=== PATIENT | male | born 1950 | race Caucasian/White ===

== ENCOUNTER 2017-03-25 22:43 | Inpatient (IN) | payer MEDICARE, OTHER ==
[~2017-03-25] VITALS: Ht 172.7 cm; Wt 109.1 kg
[2017-03-25 22:46] VITALS: BP 174/50; PULSE 43; RESP 18; O2SAT 100
--- NOTE | 2017-03-25 22:46 | ED.REPORT ---
HPI-Abd Pain M 40 and Over Date of Service Mar 25, 2017 ED Provider: Dr. José Miguel Vickers MD A 67 year old male with a surgical history including cholecystectomy presents to the ED via EMS with lower, cramping abdominal pain that began yesterday. Symptom onset began shortly after eating dinner yesterday morning and the intermittent episodes of pain are often associated with eating. Associated symptoms also include nausea without vomiting. He denies any diarrhea, melena, white/silvery stool, hematochezia, hematemesis, dysuria, or hematuria. Nursing Notes Stated Complaint: ABDOMINAL PAIN Chief Complaint: Male Abdominal Pain Nursing Notes Reviewed: Yes Allergies: Coded Allergies: No Known Allergies (Unverified , 03/25/17) Scheduled ([pioglitazone HCL]) 30 MG PO DAILY Aspirin EC (Aspirin EC) 650 Mg Tablet.dr 325 MG PO DAILY Atorvastatin Calcium (Atorvastatin Calcium) 40 Mg Tablet 40 MG PO DAILY Losartan Potassium (Losartan Potassium) 100 Mg Tablet 100 MG PO DAILY Metformin (Glucophage) 1,000 Mg Tablet 1,000 MG PO BID Metoprolol Tartrate (Metoprolol Tartrate) 25 Mg Tablet 25 MG PO BID Scheduled PRN ([gabapentin]) 100 MG PO TID PRN PRN For Pain General Time Seen by MD: 22:46 Chief Complaint Abdominal pain Hx Obtained From: Patient Arrived By: Ambulance Sudden in Onset?: No Onset Occurred: Yesterday Context of Onset: Eating Symptom Duration: Intermittent Location: : Abdomen lower Quality: Cramping Radiation: : Does not radiate Severity: Current: Moderate Severity: Maximum: Moderate Associated with: Reports: Nausea, Denies: Diarrhea, Dysuria, Hematemesis, Hematochezia, Hematuria, Melena, Vomiting Pertinent Negative: Pt denies other symptoms Recent Healthcare: No recent doctor visit, No recent hospitalization Risk Factors )( AAA Risk Stratification Risk factors reviewed Past Medical History Past Medical History Obesity Past Surgical History Multiple cardiac stents Spinal fusion Cholecystectomy Smoking History Unknown if Ever Smoker Social History Other Social History: Good social support, Local resident Ambulatory Status Independent Review of Systems Denies silvery stool GI: Reports: Abdominal pain, Nausea, Denies: Diarrhea, Hematemesis, Hematochezia, Melena, Vomiting Male: Denies Dysuria, Denies Hematuria Complete sys rev & neg: except as marked. Physical Exam Initial Vital Signs Vital Signs (First) Date Time Temp Pulse Resp B/P Pulse Ox O2 Delivery O2 Flow Rate FiO2 03/25/17 22:46 36.6 43 18 174/50 100 Room Air Initial VS: Reviewed Head / Eyes: Atraumatic, Normocephalic, PERRL Neck: Supple, Non-tender, Full range of motion Extremities: Vascular intact, Neuro intact, No swelling, No tenderness Skin: Warm, Dry, No cyanosis Neurologic: Alert, Oriented, Nonfocal Psychiatric: Mood/affect normal, Behavior normal, Normal thought content General/Constitutional: Awake, Alert, No acute distress Appearance / Presentation: Positive: Obese, Uncomfortable Respiratory / Chest: Atraumatic, Breath sounds NL, Breath sounds = bilat, No respiratory distress Cardiovascular: Heart rate NL, Regular rhythm, Heart sounds NL Abdomen: Atraumatic, Soft, No rebound Tenderness/Guarding/Rebound: Positive: Guarding voluntary (Mild), Tender diffuse ABDOMEN: eczematous rash over umbilicus to lower abdomen Back: Atraumatic Limited ROM at baseline due to chronic back pain Interpretation & Diagnostics Lab Results Interpretation Result Diagram: 03/25/17 2305 03/25/17 2305 Test 03/25/17 23:05 03/26/17 01:20 White Blood Count 15.3th/mm3 (3.8-10.1) Red Blood Count 4.96mil/mm3 (4.40-5.80) Hemoglobin 15.2g/dL (13.8-17.2) Hematocrit 45.4% (41.0-50.0) Mean Corpuscular Volume 91.5fL (81-100) Mean Corpuscular Hemoglobin 30.6pg (27.0-35.0) Mean Corpuscular Hemoglobin Concent 33.5% (32.0-37.0) Red Cell Distribution Width 15.0% (12.3-15.4) Platelet Count 190bil/L (150-400) Neutrophils (%) (Auto) 83.2% (40-74) Lymphocytes (%) (Auto) 8.9% (14-46) Monocytes (%) (Auto) 6.7% (4-12) Eosinophils (%) (Auto) 0.7% (0-5) Basophils (%) (Auto) 0.1% (0-3) Prothrombin Time 10.4sec (8.1-12.5) Prothromb Time International Ratio 0.97ratio Sodium Level 140mEq/L (134-144) Potassium Level 4.8mEq/L (3.5-5.2) Chloride Level 102mEq/L (97-108) Carbon Dioxide Level 21mmol/L (18-29) Blood Urea Nitrogen 24mg/dL (8-27) Creatinine 1.43mg/dL (0.76-1.27) Estimat Glomerular Filtration Rate 52mL/min (>59) Glucose Level 180mg/dL (60-99) Calcium Level 9.5mg/dL (8.5-10.1) Magnesium Level 2.1mg/dL (1.6-2.6) Total Bilirubin 0.8mg/dL (0.0-1.2) Aspartate Amino Transf (AST/SGOT) 18U/L (0-50) Alanine Aminotransferase (ALT/SGPT) 14U/L (0-44) Alkaline Phosphatase 65U/L (25-160) Total Protein 7.2g/dL (6.4-8.4) Albumin 4.0g/dL (3.4-5.0) Lipase 36U/L (13-60) Urine Color Yellow (YELLOW) Urine Appearance Clear (CLEAR,HAZY) Urine pH 5.0 (5.0-8.0) Urine Specific [place] 1.020 (1.003-1.035) Urine Protein Tracemg/dL (NEG,TRACE) Urine Glucose (UA) Negativemg/dL (NEGATIVE) Urine Ketones 40mg/dL (NEGATIVE) Urine Occult Blood Negative (NEGATIVE) Urine Nitrite Negative (NEGATIVE) Urine Bilirubin Negative (NEGATIVE) Urine Urobilinogen Normalmg/dL (NORMAL) Urine Leukocyte Esterase Negative (NEGATIVE) Urine RBC 0-2/hpf (0-2) Urine WBC 0-5/hpf (0-5) Urine Epithelial Cells Occasional/hpf (NONE-MOD) Urine Crystals None seen (NONE SEEN) Urine Bacteria Few/hpf (NONE-FEW) Urine Hyaline Casts None/lpf (NONE) Urine Granular Casts None seen (NONE SEEN) Urine Waxy Casts None seen (NONE SEEN) Urine Red Blood Cell Casts None seen (NONE SEEN) Urine White Blood Cell Casts None seen (NONE SEEN) Urine Mucus Present (None Seen) Urine Trichomonas None seen (NONE SEEN) Urine Yeast None (NONE SEEN) Urinalysis Comment None Urine Culture Reflexed Not indicated ECG Interpretation ECG Interpretation: Sinus bracdycardia Rate 42 Nonspecific intraventricular conduction delay Time: 23:22 Interpreted by: ED physician CT Abd / Pelvis Interpretation IMPRESSION: Findings are consistent with a moderate-high grade mid to distal small bowel obstruction. Mild hazy mesentary edema may be due to superimposed ischemia. Zone transition in the lower abdomen. Probably less likely small bowel ischemia with pseudoobstruction No mesenteric or portal venous gas Scattered mild intra-abdominal and intrapelvic fluid. Cholcysectomy. No evidence of appendicitis Post op changes of the hips and lumbosacral spine. Study type: Abdominal CT IV contrast, Abdom CT oral contrast Interpretation / Wet Read by: Interpret - Radiologist (Nightshift) Re-Eval/Medical Decision Med Decision/Clinical Course 59-year-old status post cholecystectomy presents with waxing and waning abdominal pain, worse after eating. It has a colicky wavelike time sequence. Improved to have a bowel obstruction on CT scan. There is some mild to moderate free fluid in the abdomen but intact vascularity. His moderate white count elevation. Discussed with surgery and NG tube recommended despite lack of vomiting. Admitted to the medicine service with consultation to surgery. Nothing by mouth status with fluid support and pain relief. Time of Eval: 00:43 Patient Status: Condition improved Re-Evaluation/Progress Note: Patient is re-evaluated. His symptoms have improved upon recheck. He is informed of his results and diagnosis. The patient understands and agrees with the intended treatment plan to admit. Consultation : Referral / Consult Name: Trip Toledo MD Consulted With: Hospitalist Quality Control Auditor: Will see patient, Agrees with eval, Agrees with plan, Accepts admit Counseled Regarding: Diagnosis, Lab results, Need for admission Discharge & Departure Primary Impression: Small bowel obstruction Additional Impression: Small bowel ischemia Disposition: ADMITTED TO HOSPITAL Vital Signs - All Vital Signs Date Time Temp Pulse Resp B/P Pulse Ox O2 Delivery O2 Flow Rate FiO2 03/26/17 01:02 46 20 160/79 96 Room Air 03/25/17 22:46 36.6 43 18 174/50 100 Room Air )( All Prior VS Reviewed: Yes Condition: Stable Referrals: [facility] Scribe Attestation Portions of this note were transcribed by Mandy Jacob. IDr. Vickers personally performed the history, physical exam and medical decision-making; I reviewed and confirmed the accuracy of the information in the transcribed note. José Miguel Vickers MD Mar 25, 2017 22:46 MANDY JACOB Mar 25, 2017 22:54
[2017-03-25] MEDS ORDERED: 0.9% Sodium Chloride 1,000 ML IV ONE (22:53)
[2017-03-25] MEDS ORDERED: Ondansetron 2 mg/mL 2 mL Inj IVPUSH ONE (22:55)
[2017-03-25] MEDS: HYDROmorphone 1 mg/mL Inj IVPUSH PRN (23:20)
[2017-03-25 23:21] LABS: BASOPHILS % (AUTO) 0.1 % (0-3); EOSINOPHILS % (AUTO) 0.7 % (0-5); MONOCYTES % (AUTO) 6.7 % (4-12); Mean Corpuscular Hemoglobin 30.6 pg (27.0-35.0); Mean Corpuscular Volume 91.5 fL (81-100); NEUTROPHILS % (AUTO) 83.2 % (40-74); Platelet Count 190 bil/L (150-400)
[2017-03-25 23:37] LABS: INR 0.97 ratio
[2017-03-25 23:47] LABS: Magnesium 2.1 mg/dL (1.6-2.6)
[2017-03-26] MEDS ORDERED: 0.9% Sodium Chloride 1,000 ML IV ONE (00:40)
[2017-03-26 01:02] VITALS: BP 160/79; PULSE 46; RESP 20; O2SAT 96
[2017-03-26] MEDS ORDERED: Polyethylene Glycol (PEG) 17 Gm Powder PO PRN (01:05)
[2017-03-26] MEDS ORDERED: Alum-Mag Hydrox-Simeth 30 mL Suspension PO PRN (01:05)
[2017-03-26] MEDS ORDERED: Ondansetron 2 mg/mL 2 mL Inj IVPUSH PRN (01:05)
[2017-03-26] MEDS: HYDROmorphone 1 mg/mL Inj IVPUSH PRN (01:13)
[2017-03-26 01:34] LABS: APPEARANCE,URINE CLEAR (CLEAR,HAZY); COLOR,URINE YELLOW (YELLOW); OCCULT BLOOD,URINE NEGATIVE (NEGATIVE); UROBILINOGEN,URINE NORMAL (NORMAL)
[2017-03-26 02:20] VITALS: BP 154/75; PULSE 47; RESP 20; O2SAT 100
[2017-03-26] MEDS: 0.9% Sodium Chloride 1,000 ML IV SCH ×3 (03:08→22:55)
--- NOTE | 2017-03-26 03:25 | PCM.HPMED ---
Subjective Date of Service Mar 26, 2017 Primary Provider: Admitting Physician: Trip Toledo MD Primary Care Physician: Nopdanay Attending Physician: Trip Toledo MD Chief Complaint: abdominal pain History of Present Illness: Bhupinder Mullins is a 67 yr old male patient with past medical history significant for hypertension, DM type II, MELANIE, CAD, chronic back pain, anxiety, and obesity who presented to the ED with abdominal pain. He states the waxing and waning pain started on 03/24/2017 and has gone progressively worse since then. He states that the pain is in the mid abdominal area around umbilicus and does not radiate anywhere else. It is worse after eating and with pressure. He has not tried anything at home to help relieve the pain. Reports that the pain feels as if "someone is sitting on his abdomen." He denies nausea and vomiting. He reports a normal bowel movement this afternoon and he has been able to pass gas. He denies constipation, diarrhea, and blood in the stools. Patient denies fevers, chills, headaches, chest pain, shortness of breath, and dysuria. In the ED, his vital signs were as follow: Temp 36.6, heart rate 43, respiratory rate 18, pressure 174/50, 100% O2 sat at room air. WBC was 15.[address] of the abdomen with findings that are consistent with a moderate to high grade mid to distal small bowel obstruction. He was given IV Dilaudid for pain relief. Review of Systems: Comprehensive review of systems was conducted with the patient and found to be negative except as above in the history of present illness. Allergies Coded Allergies: No Known Allergies (Unverified , 03/25/17) Home Medications ([pioglitazone HCL]) 30 MG PO DAILY Aspirin EC (Aspirin EC) 650 Mg Tablet. 325 MG PO DAILY Atorvastatin Calcium (Atorvastatin Calcium) 40 Mg Tablet 40 MG PO DAILY Losartan Potassium (Losartan Potassium) 100 Mg Tablet 100 MG PO DAILY Metformin (Glucophage) 1,000 Mg Tablet 1,000 MG PO BID Metoprolol Tartrate (Metoprolol Tartrate) 25 Mg Tablet 25 MG PO BID ([gabapentin]) 100 MG PO TID PRN PRN For Pain PMH Hypertension, diabetes mellitus type II, hyperlipidemia, obesity, anxiety, chronic back pain, coronary artery disease, obstructive sleep apnea Surgical History Cholecystectomy, multiple cardiac stents, spinal fusion, 2 hip replacements Family History Cardiovascular disease with his father, mother, brother. Patient reports that his brother has cancer but he is unsure if it is colorectal. Social History Hx Alcohol Use: No Hx Substance Use: No Smoking Status: Unknown if Ever Smoker Exam Vital Signs Vital Sign - Last Date Time Temp Pulse Resp B/P Pulse Ox O2 Delivery O2 Flow Rate FiO2 03/26/17 02:20 36.4 47 20 154/75 100 Nasal Cannula 2.00 Intake and Output 03/25/17 03/25/17 03/26/17 Cumulative From/Thru 15:00 23:00 07:00 03/25/17 22:45 - 03/26/17 02:35 Intake Total 1000 ml 1000 ml 2000 ml Balance 1000 ml 1000 ml 2000 ml Intake IV Total 1000 ml 1000 ml 2000 ml Exam General: Patient is an obese male lying uncomfortably on bed, AAOX3, not in acute distress. HEENT: head normocephalic and atraumatic, PERRLA, EOMI, no scleral icterus Neck: neck supple, non-tender, no lymphadenopathy, trachea midline CV: regular rate and rhythm, s1 and s2 heard, no murmur, radial pulses 2+ and equal bilaterally, no rubs murmurs or gallops Lungs: Clear to auscultation bilaterally, no wheezes, rales or rhonchi, no increased work of breathing Abdomen: decreased bowel sounds on 4Q, soft, tender to palpation around the umbilical region, mild voluntary guarding no organomegally Skin: warm, dry and no cyanosis, erythematous rash on Right lower abdomen as well as near umbilicus Musculoskeletal: 5/5 UE and LE strength bilaterally, Limited ROM at baseline due to chronic back pain Neuro: Grossly neurologically intact, normal speech, sensation intact Psych: Cooperative male Lab and Diagnostics Labs Laboratory Tests Test 03/25/17 23:05 03/26/17 01:20 03/26/17 02:48 03/26/17 04:30 White Blood Count 15.3th/mm3 (3.8-10.1) Red Blood Count 4.96mil/mm3 (4.40-5.80) Hemoglobin 15.2g/dL (13.8-17.2) Hematocrit 45.4% (41.0-50.0) Mean Corpuscular Volume 91.5fL (81-100) Mean Corpuscular Hemoglobin 30.6pg (27.0-35.0) Mean Corpuscular Hemoglobin Concent 33.5% (32.0-37.0) Red Cell Distribution Width 15.0% (12.3-15.4) Platelet Count 190bil/L (150-400) Neutrophils (%) (Auto) 83.2% (40-74) Lymphocytes (%) (Auto) 8.9% (14-46) Monocytes (%) (Auto) 6.7% (4-12) Eosinophils (%) (Auto) 0.7% (0-5) Basophils (%) (Auto) 0.1% (0-3) Prothrombin Time 10.4sec (8.1-12.5) Prothromb Time International Ratio 0.97ratio Sodium Level 140mEq/L (134-144) Potassium Level 4.8mEq/L (3.5-5.2) Chloride Level 102mEq/L (97-108) Carbon Dioxide Level 21mmol/L (18-29) Blood Urea Nitrogen 24mg/dL (8-27) Creatinine 1.43mg/dL (0.76-1.27) Estimat Glomerular Filtration Rate 52mL/min (>59) Glucose Level 180mg/dL (60-99) Lactic Acid Level 2.1mmol/L (0.4-2.0) 1.3mmol/L (0.4-2.0) 1.5mmol/L (0.4-2.0) Calcium Level 9.5mg/dL (8.5-10.1) Magnesium Level 2.1mg/dL (1.6-2.6) Total Bilirubin 0.8mg/dL (0.0-1.2) Aspartate Amino Transf (AST/SGOT) 18U/L (0-50) Alanine Aminotransferase (ALT/SGPT) 14U/L (0-44) Alkaline Phosphatase 65U/L (25-160) Total Protein 7.2g/dL (6.4-8.4) Albumin 4.0g/dL (3.4-5.0) Lipase 36U/L (13-60) Urine Color Yellow (YELLOW) Urine Appearance Clear (CLEAR,HAZY) Urine pH 5.0 (5.0-8.0) Urine Specific [place] 1.020 (1.003-1.035) Urine Protein Tracemg/dL (NEG,TRACE) Urine Glucose (UA) Negativemg/dL (NEGATIVE) Urine Ketones 40mg/dL (NEGATIVE) Urine Occult Blood Negative (NEGATIVE) Urine Nitrite Negative (NEGATIVE) Urine Bilirubin Negative (NEGATIVE) Urine Urobilinogen Normalmg/dL (NORMAL) Urine Leukocyte Esterase Negative (NEGATIVE) Urine RBC 0-2/hpf (0-2) Urine WBC 0-5/hpf (0-5) Urine Epithelial Cells Occasional/hpf (NONE-MOD) Urine Crystals None seen (NONE SEEN) Urine Bacteria Few/hpf (NONE-FEW) Urine Hyaline Casts None/lpf (NONE) Urine Granular Casts None seen (NONE SEEN) Urine Waxy Casts None seen (NONE SEEN) Urine Red Blood Cell Casts None seen (NONE SEEN) Urine White Blood Cell Casts None seen (NONE SEEN) Urine Mucus Present (None Seen) Urine Trichomonas None seen (NONE SEEN) Urine Yeast None (NONE SEEN) Urinalysis Comment None Urine Culture Reflexed Not indicated Result Diagram: 03/25/17 2305 03/25/17 230 X-Rays, CTs and MRIs CT of abdomen IMPRESSION: Findings are consistent with a moderate-high grade mid to distal small bowel obstruction. Mild hazy mesentary edema may be due to superimposed ischemia. Zone transition in the lower abdomen. Probably less likely small bowel ischemia with pseudoobstruction No mesenteric or portal venous gas Scattered mild intra-abdominal and intrapelvic fluid. Cholcysectomy. No evidence of appendicitis Post op changes of the hips and lumbosacral spine. Study type: Abdominal CT IV contrast, Abdom CT oral contrast Interpretation / Wet Read by: Interpret - Radiologist (Nightshift) 12-lead ECG Sinus Dax rate 42 Assessment & Plan Bhupinder Mullins is a 67 yr old male patient with past medical history significant for hypertension, DM type II, MELANIE, CAD, chronic back pain, anxiety, and obesity who presented to the ED with abdominal pain. He is being admitted for a small bowel obstruction. 1. Small Bowel Obstruction, present on admission - CT of Abdomen revealed moderate-high grade mid to distal small bowel obstruction. It could be secondary to adhesions from prior cholecystectomy. -Per ER doctor, surgery was consulted and they will see him in the morning. -Keep patient nothing by mouth -Start IV fluids at 100 mL/hr -Control symptoms with Dilaudid, and anti-nausea -If symptoms escalate, order NG tube 2. Lactic acidosis, present on admission, resolved -May signal bowel ischemia but trend shows that lactic acid has normalized -Lactic acid trend: 2.1, 1.3, 1.5 3. Leukocytosis, present on admission - WBC 15.3 - Rule out other sources of infection- UA was negative, no evidence of appendicitis, - Trend WBC 4. Acute Kidney Injury, present on admission -Likely secondary to dehydration, Cr 1.43 -Patient is receiving IV fluids 5. Hx of Hypertension - Continue home Losartan 100 mg daily -Hold Metoprolol tartrate due to low heart rate in the 40s 6. Hx of Hyperlipidemia -Continue Atorvastatin 40 mg daily CODE STATUS: Full code DVT prophylaxis: Subcutaneous heparin Bowel regimen when necessary Patient status: Patient is admitted under inpatient status with expected length of stay greater than 2 midnights due to severity of presenting symptoms, risk of adverse event, and complexity of treatment. VTE Prophylaxis: Sub-Q Heparin (Unfractionated) Resuscitation Status: CPR: Attempt Resuscitation Attending Statement The patient was seen and examined together with Dr. Rosas on 03/26 and I agree with the history, exam and plan as outlined in the note above. Faina Rosas DO Mar 26, 2017 03:25 Trip Toledo MD Mar 26, 2017 06:58
[2017-03-26] MEDS ORDERED: Glucose 40% Oral Gel 15 Gm Tube PO PRN (03:50)
[2017-03-26] MEDS ORDERED: PIOGLITAZONE HCL PO (04:10)
[2017-03-26] MEDS ORDERED: METF1000 PO (04:11)
[2017-03-26] MEDS ORDERED: gabapentin PO (04:17)
[2017-03-26] MEDS ORDERED: [UNRECOGNIZED DRUG - CODE] PO (04:23)
[2017-03-26] MEDS ORDERED: LOSA100T29 PO (04:25)
[2017-03-26] MEDS ORDERED: METO25TA6 PO (04:30)
[2017-03-26] MEDS ORDERED: ATOR40TA69 PO (04:32)
[2017-03-26] MEDS ORDERED: HYDROmorphone 1 mg/mL Inj IVPUSH PRN (06:45)
--- NOTE | 2017-03-26 06:58 | DRSVH ---
PROCEDURE: CT ABDOMEN AND PELVIS WITH CONTRAST ([id number]) INDICATIONS: 67 year-old male with lower abdominal pain for 36 hours. TECHNIQUE: After the administration of intravenous contrast, 5 mm thick sections acquired from the diaphragm to the symphysis. 5 mm coronal and sagittal reformats were acquired. For radiation dose reduction, the following was used: automated exposure control, adjustment of mA and/or kV according to patient siz e. COMPARISON: None. FINDINGS: Preliminary interpretation rendered by [facility]. Image quality: Metallic streak artifact from bilateral hip arthroplasty hardware obscures adjacent alek ne and soft tissue structures. ABDOMEN: Lung bases: Lung bases are clear, except for lingular scarring or atelectasis. Heart size is normal . Solid organs: Liver and spleen are normal in size and enhancement. Gallbladder is surgically absent . Biliary system is non dilated. Pancreas enhances normally. No adrenal nodules. Kidneys demonstr ate normal size and enhancement, without hydronephrosis. Peritoneum and bowel: There is mild dilation of proximal and mid small bowel loops without wall thick ening; more distal ileal small bowel loops are decompressed throughout. Colon also appears normal in caliber throughout. There is scattered small abdominal and pelvic ascites. No pneumoperitoneum. Nodes and vessels: No retroperitoneal or mesenteric adenopathy by size criteria. There is patchy me senteric fat stranding associated with the dilated small bowel loops. Aorta and inferior vena cava ar e normal in size, with moderate aortoiliac atherosclerosis. Miscellaneous: No ventral hernias. PELVIS: Genitourinary: Bladder wall thickness is normal. Prostate gland is largely obscured by metallic str eak artifact. Miscellaneous: No inguinal hernias or adenopathy. Bones: No suspicious bony lesions. No vertebral body compression fractures. Patient is status post bilateral hip arthroplasties, as well as L4-L5 laminectomy, L3-S1 discectomies with interbody fusion and L2-S1 bilateral posterior fixation and bony fusion. IMPRESSION: 1. Findings consistent with mid small bowel obstruction, with patchy mesenteric edema suggesting kehinde y bowel ischemia. Associated nonspecific scattered small abdominal and pelvic ascites. In the absence of any associated mass lesions or hernias, obstruction is presumably secondary to adhesions. 2. Remote cholecystectomy, bilateral hip arthroplasties, and extensive lumbar spine surgeries. Dictated by: Ruben Wiggins M.D. on 03/26/2017 at 6:42 Approved by: Ruben Wiggins M.D. on 03/26/2017 at 6:56
--- NOTE | 2017-03-26 07:30 | NUR ---
admit to floor Nausea / no emesis. Rates abd pain 7 on admit. IV dilaudid 1 mg given and effective. Patient with prior history of apnea bur doesn't wear a c-pap. 02 desats to 70-80's after narcotic dose. oxygen on 2 Lt's overnight to maintain sats at 99%. IV fluids infusing. at bedside.
--- NOTE | 2017-03-26 07:33 | NUR ---
NGT placement at 0615 Met resistance at 50 cm dimitri. small amount clear liq return but held off further advancement of tube until stat CXR done. Day shift RN informed to follow-up with need for possible advancement of NGT this morning. Patient medicated with 1 mg IV dilaudid and is now resting quietly.
[2017-03-26] MEDS: Insulin LISPRO 300 Unit/3 mL Inj SUBQ SCH ×4 (08:00→22:00)
--- NOTE | 2017-03-26 08:06 | DRSVH ---
PROCEDURE: X-RAY CHEST ONE VIEW, PORTABLE ([id number]) INDICATIONS: 67-year-old male with nasogastric tube placement. TECHNIQUE: One view of the chest was acquired. COMPARISON: None. FINDINGS: Surgical changes and devices: Cholecystectomy clips are present. Nasogastric tube is present, with ti p at the gastroesophageal junction. Lungs and pleura: No pleural effusions or pneumothorax. Visualized lungs are clear. Lung apices are excluded from the film. Mediastinum: Mediastinal contours appear normal. Heart size is normal. Bones and chest wall: No suspicious bony lesions. Overlying soft tissues appear unremarkable. IMPRESSION: Tip of nasogastric tube lies at the gastroesophageal junction. Dictated by: Ruben Wiggins M.D. on 03/26/2017 at 8:02 Approved by: Ruben Wiggins M.D. on 03/26/2017 at 8:03
[2017-03-26] MEDS: Heparin 5,000 Unit/mL Inj SUBQ SCH ×2 (09:27→16:54)
--- NOTE | 2017-03-26 09:57 | DRSVH ---
PROCEDURE: X-RAY ABDOMEN, ONE VIEW ([id number]) INDICATIONS: 67-year-old male with nasogastric tube repositioning. TECHNIQUE: One view of the abdomen acquired. COMPARISON: [facility], CR, XR CHEST 1VW (PORTABLE), 03/26/2017, 6:51. FINDINGS: Surgical changes and devices: Nasogastric tube is again noted, with tip in the gastric body. Cholecys tectomy clips are again noted. Lumbar spine posterior fixation hardware is incompletely visualized. Bowel: Bowel gas pattern is normal. Soft tissues: No suspicious abdominal calcifications. Visualized solid organ contours appear normal in size. Bones: No suspicious bony lesions. IMPRESSION: Tip of nasogastric tube is in the gastric body after repositioning. Dictated by: Ruben Wiggins M.D. on 03/26/2017 at 9:53 Approved by: Ruben Wiggins M.D. on 03/26/2017 at 9:54
--- NOTE | 2017-03-26 10:20 | PCM.CONSUR ---
Subjective Date of Service: Mar 26, 2017 History of Present Illness Mr. Mullins is a 67 year old male who presents with 2 days of worsening progressive abodminal pain. He reports that after eating dinner 2 days ago, he started to experience moderate cramping pain around his umbilicus. He denies eating anything out of the ordinary. The pain has persisted and worsened in intensity, prompting presentation to the ED last night. The pain has remained cramping in nature, intermittent, never lasting more than the few minutes, but returning shortly after resolving. It is the worst abdominal pain he has experienced. He endorses associated nausea but no vomiting. He was able to pass normal stool and some flatus yesterday but has not passed any gas for the last 12 hours. He denies feeling bloated or distended. No fevers or chills. Yesterday, he was able to eat and drink some food which did not seem to alter his pain. Reason for Consultation Small bowel obstruction Allergy Allergies: Coded Allergies: No Known Allergies (Unverified , 03/25/17) Medications Blood Thinners: Aspirin ([pioglitazone HCL]) 30 MG PO DAILY (Reported) ([gabapentin]) 100 MG PO TID PRN PRN For Pain (Reported) Aspirin EC (Aspirin EC) 650 Mg Tablet.dr 325 MG PO DAILY (Reported) Last Taken: Unknown Dose on Unknown Date & Time Atorvastatin Calcium ( Atorvastatin Calcium) 40 Mg Tablet 40 MG PO DAILY (Reported) Losartan Potassium (Losartan Potassium) 100 Mg Tablet 100 MG PO DAILY (Reported ) Metformin (Glucophage) 1,000 Mg Tablet 1,000 MG PO BID (Reported) Metoprolol Tartrate (Metoprolol Tartrate) 25 Mg Tablet 25 MG PO BID (Reported) Past Surgical History Surgeries: Yes (Laparoscopic cholecystectomy, spinal fusion, and bilateral hip replacement) Patient/Family Past Surgical: Positive for:: Blood Transfuse Reaction, Denies:: Blood Transfusions Social History Hx Alcohol Use: Yes Alcoholic Drinks Per Day: Intermittently, socially Hx Substance Use: No PMH HEENT History History of ENT Problems?: No Cardiovascular History History of Heart Problems?: Yes Cardiovascular History: Positive for:: Coronary Artery Disease (s/p stent placement) Hypertension Denies:: Congestive Heart Failure Respiratory History of Respiratory Problem: No Respiratory History: Denies:: Pneumonia Tuberculosis Neurological History Hx Neurologic Problems?: No Gastrointestinal History HX of GI Problems?: No Genitourinary History Genitourinary History: Denies: Kidney Stones Urinary Tract Infection Female/Male History Reproductive History Male: Denies: Prostate Problems Skin History Other Skin Pertinent History: Rash at umbilical area on admit Musculoskeletal History Hx Musculoskeletal Problems?: Yes Musculoskeletal History: Positive for:: Back Injury Psycho Social History Hx of Psycho/Social Problems?: No Other History Hx Any Other Health Problems?: Yes Diabetes: Yes (Type 2)Bedside Blood Glucose: 136 Social History Hx Alcohol Use: NoHx Substance Use: NoHx Tobacco Use: No Living Arrangement: with Family Family History PMH Family Member: Sibling(s) (The patients brother has a history of mestatic bladder cancer requiring multiple small bowel resections) Objective Exam Vital Signs & I/O Vital Sign- Last 8 Hours Date Time Temp Pulse Resp B/P Pulse Ox O2 Delivery O2 Flow Rate FiO2 03/26/17 02:20 36.4 47 20 154/75 100 Nasal Cannula 2.00 Intake and Output- Last 8 Hour 03/26/17 Cumulative From/Thru 07:00 03/25/17 22:45 - 03/26/17 02:35 Intake Total 1000 ml 2000 ml Balance 1000 ml 2000 ml Intake IV Total 1000 ml 2000 ml Lab & Micro Results Laboratory Tests Test 03/25/17 23:05 03/26/17 01:20 03/26/17 02:48 03/26/17 04:30 White Blood Count 15.3th/mm3 (3.8-10.1) Red Blood Count 4.96mil/mm3 (4.40-5.80) Hemoglobin 15.2g/dL (13.8-17.2) Hematocrit 45.4% (41.0-50.0) Mean Corpuscular Volume 91.5fL (81-100) Mean Corpuscular Hemoglobin 30.6pg (27.0-35.0) Mean Corpuscular Hemoglobin Concent 33.5% (32.0-37.0) Red Cell Distribution Width 15.0% (12.3-15.4) Platelet Count 190bil/L (150-400) Neutrophils (%) (Auto) 83.2% (40-74) Lymphocytes (%) (Auto) 8.9% (14-46) Monocytes (%) (Auto) 6.7% (4-12) Eosinophils (%) (Auto) 0.7% (0-5) Basophils (%) (Auto) 0.1% (0-3) Prothrombin Time 10.4sec (8.1-12.5) Prothromb Time International Ratio 0.97ratio Sodium Level 140mEq/L (134-144) Potassium Level 4.8mEq/L (3.5-5.2) Chloride Level 102mEq/L (97-108) Carbon Dioxide Level 21mmol/L (18-29) Blood Urea Nitrogen 24mg/dL (8-27) Creatinine 1.43mg/dL (0.76-1.27) Estimat Glomerular Filtration Rate 52mL/min (>59) Glucose Level 180mg/dL (60-99) Lactic Acid Level 2.1mmol/L (0.4-2.0) 1.3mmol/L (0.4-2.0) 1.5mmol/L (0.4-2.0) Calcium Level 9.5mg/dL (8.5-10.1) Magnesium Level 2.1mg/dL (1.6-2.6) Total Bilirubin 0.8mg/dL (0.0-1.2) Aspartate Amino Transf (AST/SGOT) 18U/L (0-50) Alanine Aminotransferase (ALT/SGPT) 14U/L (0-44) Alkaline Phosphatase 65U/L (25-160) Total Protein 7.2g/dL (6.4-8.4) Albumin 4.0g/dL (3.4-5.0) Lipase 36U/L (13-60) Urine Color Yellow (YELLOW) Urine Appearance Clear (CLEAR,HAZY) Urine pH 5.0 (5.0-8.0) Urine Specific [place] 1.020 (1.003-1.035) Urine Protein Tracemg/dL (NEG,TRACE) Urine Glucose (UA) Negativemg/dL (NEGATIVE) Urine Ketones 40mg/dL (NEGATIVE) Urine Occult Blood Negative (NEGATIVE) Urine Nitrite Negative (NEGATIVE) Urine Bilirubin Negative (NEGATIVE) Urine Urobilinogen Normalmg/dL (NORMAL) Urine Leukocyte Esterase Negative (NEGATIVE) Urine RBC 0-2/hpf (0-2) Urine WBC 0-5/hpf (0-5) Urine Epithelial Cells Occasional/hpf (NONE-MOD) Urine Crystals None seen (NONE SEEN) Urine Bacteria Few/hpf (NONE-FEW) Urine Hyaline Casts None/lpf (NONE) Urine Granular Casts None seen (NONE SEEN) Urine Waxy Casts None seen (NONE SEEN) Urine Red Blood Cell Casts None seen (NONE SEEN) Urine White Blood Cell Casts None seen (NONE SEEN) Urine Mucus Present (None Seen) Urine Trichomonas None seen (NONE SEEN) Urine Yeast None (NONE SEEN) Urinalysis Comment None Urine Culture Reflexed Not indicated Test 03/26/17 06:35 03/26/17 08:55 Lactic Acid Level 1.6mmol/L (0.4-2.0) 1.2mmol/L (0.4-2.0) Result Diagram: 03/25/17230403/25/172304 Review of Systems: Constitutional: Negative, except as otherwise mentioned in the history above. Ophthalmologic: Negative, except as otherwise mentioned in the history above. Cardiovascular: Negative, except as otherwise mentioned in the history above. Respiratory: Negative, except as otherwise mentioned in the history above. Gastrointestinal: Negative, except as otherwise mentioned in the history above. Genitourinary: Negative, except as otherwise mentioned in the history above. Musculoskeletal: Negative, except as otherwise mentioned in the history above. Neurological: Negative, except as otherwise mentioned in the history above. Psychiatric: Negative, except as otherwise mentioned in the history above. Hematologic/Lymphatic: Negative, except as otherwise mentioned in the history above. Allergic/Immunologic: Negative, except as otherwise mentioned in the history above. H&P Surgical Exam Exam General: Alert, Oriented X3, Cooperative, No Acute Distress HEENT: Within normal limits & unremarkable Neck: Within normal limits & unremarkable Respiratory: Clear to Auscultation Cardiac: Regular Rate/Rhythm, No Murmurs/Rubs/Gallops Abdomen: Soft, No tenderness, Other (Nondistended. No masses, hernia, or organomegaly appreciated. Scars from lap kaur are difficult to identify other than a supra-umbilical trocar incision. ) Pelvic: Not Indicated Additional Information CT abdomen and pelvis is personally reviewed. The proximal small bowel is dilated to ~ 3.0 cm and fluid filled. There is a transition point in the right mid anterior abdomen, near the umbilicus with downstream ileum decompressed. Assessment & Plan Assessment 67M with history of laparoscopic cholecystectomy now with a small bowel obstruction likely secondary to adhesive disease. VTE Prophylaxis: Sub-Q Heparin (Unfractionated) Plan: - Appreciate ongoing care from primary medicine service - Patient should continue with NG decompression to LCWS - He should remain strictly NPO - Serial abdominal exams - Avoid narcotic pain meds if possible, ok for multimodals such as IV tylenol - Please contact general surgery if the patient's pain is not improved or he is requiring frequent narcotics to control his pain now that he has a functioning NG tube - Will consider gastrograffin challenge tomorrow after 24 hours of NG decompession - Please do not hesitate to call with any questions or concerns. Resuscitation Status: CPR: Attempt Resuscitation Oneil Regan MD Mar 26, 2017 10:20
[2017-03-26 11:19] VITALS: BP 161/84; PULSE 49; RESP 18; O2SAT 100
--- NOTE | 2017-03-26 11:25 | NUR ---
NG Tube MD notified about resistance with placement of NG tube at 50cm. MD at bedside and advanced placement to 75 cm. NG tube had 200cc of yellow/green output. Xray ordered. MD called RN to retract NG tube 4cm. NG tube now placed at 71cm and running on low intermittent suction per orders.
[2017-03-26] MEDS ORDERED: Acetaminophen IV 1,000 MG in IV Premix 1 EACH IV PRN (12:50)
[2017-03-26 15:21] VITALS: BP 145/84; PULSE 47; RESP 16; O2SAT 99
[2017-03-26] MEDS ORDERED: MeTOProlol 1 mg/mL 5 mL Inj IVPUSH PRN (19:20)
[2017-03-26 20:31] VITALS: BP 152/82; PULSE 59; RESP 18; O2SAT 99
[2017-03-27 00:29] VITALS: BP 148/73; PULSE 60; RESP 16; O2SAT 92
[2017-03-27] MEDS: Heparin 5,000 Unit/mL Inj SUBQ SCH ×3 (00:37→17:51)
--- NOTE | 2017-03-27 01:54 | PCM.PNMED ---
Subjective Date of Service Mar 26, 2017 Subjective Patient is seen and examined. He sitting and watching TV in his bed, states he hates the NG tube. Greenish brown aspirate in the NG tube container canister about 350 mL. He says he has no nausea. Abdominal pain is returning after last dose of pain medication no other concerns Exam Vital Signs Vital Sign - Last Date Time Temp Pulse Resp B/P Pulse Ox O2 Delivery O2 Flow Rate FiO2 03/26/17 20:31 37.1 59 18 152/82 99 Nasal Cannula 2.00 Intake and Output 03/25/17 03/25/17 03/26/17 Cumulative From/Thru 15:00 23:00 07:00 03/25/17 22:45 - 03/26/17 02:35 Intake Total 1000 ml 1000 ml 2000 ml Balance 1000 ml 1000 ml 2000 ml IV Total 1000 ml 1000 ml 2000 ml Exam General: Patient is an obese male lying uncomfortably on bed, AAOX3, not in acute distress. HEENT: head normocephalic and atraumatic, PERRLA, EOMI, no scleral icterus Neck: neck supple, non-tender, no lymphadenopathy, trachea midline CV: regular rate and rhythm, s1 and s2 heard, no murmur, radial pulses 2+ and equal bilaterally, no rubs murmurs or gallops Lungs: Clear to auscultation bilaterally, no wheezes, rales or rhonchi, no increased work of breathing Abdomen: decreased bowel sounds on 4Q, soft, tender to palpation around the umbilical region Skin: warm, dry Neuro: Grossly neurologically intact, normal speech, sensation intact Psych: Cooperative male IVs and Medications IV Fluids Normal saline 100 mL/h Medications Reviewed: Medications were reviewed in detail Lab and Diagnostics Result Diagram: 03/26/17 1038 03/25/17 6382 X-Rays, CTs and MRIs CT of abdomen IMPRESSION: Findings are consistent with a moderate-high grade mid to distal small bowel obstruction. Mild hazy mesentary edema may be due to superimposed ischemia. Zone transition in the lower abdomen. Probably less likely small bowel ischemia with pseudoobstruction No mesenteric or portal venous gas Scattered mild intra-abdominal and intrapelvic fluid. Cholcysectomy. No evidence of appendicitis Post op changes of the hips and lumbosacral spine. Study type: Abdominal CT IV contrast, Abdom CT oral contrast Interpretation / Wet Read by: Interpret - Radiologist ([place]) 12-lead ECG Sinus Dax rate 42 Assessment & Plan Bhupinder Mullins is a 67 yr old male patient with past medical history significant for hypertension, DM type II, MELANIE, CAD, chronic back pain, anxiety, and obesity who presented to the ED with abdominal pain. He is being admitted for a small bowel obstruction. 1. Small Bowel Obstruction, present on admission - CT of Abdomen revealed moderate-high grade mid to distal small bowel obstruction. It could be secondary to adhesions from prior cholecystectomy. -Per ER doctor, surgery was consulted and they will see him in the morning. Dr. rios has seen the patient, no current plans to take him to surgery. NG tube is placed -Keep patient nothing by mouth -Start IV fluids at 100 mL/hr -Control symptoms with morphine, and anti-nausea, IV Tylenol -If symptoms escalate, order NG tube 2. Lactic acidosis, present on admission, resolved -May signal bowel ischemia but trend shows that lactic acid has normalized -Lactic acid trend: 2.1, 1.3, 1.5 3. Leukocytosis, present on admission - WBC 15.3->12.8 - Rule out other sources of infection- UA was negative, no evidence of appendicitis, - Trend WBC 4. Acute Kidney Injury, present on admission -Likely secondary to dehydration, Cr 1.43 -Patient is receiving IV fluids 5. Hx of Hypertension -Old home Losartan 100 mg daily -Hold Metoprolol tartrate due to low heart rate in the 40s -Ordered enalapril IV1.25-6 hour when necessary with parameters - 6. Hx of Hyperlipidemia -Hold Atorvastatin 40 mg daily CODE STATUS: Full code DVT prophylaxis: Subcutaneous heparin Bowel regimen when necessary Patient status: Patient is admitted under inpatient status with expected length of stay greater than 2 midnights due to severity of presenting symptoms, risk of adverse event, and complexity of treatment. Pain Evaluation: Pain not Controlled VTE Prophylaxis: Sub-Q Heparin (Unfractionated) VTE Mechanical Devices: Intermittant Pneumatic CD Resuscitation Status: CPR: Attempt Resuscitation Time spent 25 minutes Rosa Allen DO Mar 26, 2017 22:17
--- NOTE | 2017-03-27 02:44 | NUR ---
Pain/NG tube at start of shift pt had abdominal pain 7/10 in intensity. he said it felt as if the NG tube was not suctioning. it appeared the NG tubing was kinked. nurse fixed the NG tube and it started suctioning again. pt was given 1mg of IV morphine. since that time pt has had no more complaints of pain this shift. he has denied nausea as well. pt resting comfortably in bed at this time. care continues.
[2017-03-27 06:20] VITALS: BP 145/69; PULSE 60; RESP 18; O2SAT 93
[2017-03-27 06:36] LABS: Mean Corpuscular Hemoglobin 30.3 pg (27.0-35.0); Mean Corpuscular Volume 94.3 fL (81-100)
[2017-03-27] MEDS: Insulin LISPRO 300 Unit/3 mL Inj SUBQ SCH ×4 (08:00→22:00)
[2017-03-27] MEDS: Dextrose 5% 0.45% NaCl 1,000 ML IV SCH ×3 (08:57→23:25)
--- NOTE | 2017-03-27 11:53 | PCM.PNSURG ---
Subjective Date of Service: Mar 27, 2017 Visit Information: Reason for Visit SBO Surgery/Surgery Date Post-Op Day # Date of Admission: Mar 26, 2017 at 01:31 Hospital Day # Subjective: Feeling better today Abdominal pain and nausea improved Passing flatus, no stool since hospitalization Overnight, NG became kinked and his pain worsened, then resolved once the tube was adjusted Objective Vital Sign- Last 8 Hours Date Time Temp Pulse Resp B/P Pulse Ox O2 Delivery O2 Flow Rate FiO2 03/27/17 06:20 36.9 60 18 145/69 93 Room Air Intake and Output- Last 8 Hour 03/27/17 Cumulative From/Thru 07:00 03/25/17 22:45 - 03/27/17 06:42 Intake Total 1182 ml 4540 ml Output Total 1375 ml 2925 ml Balance -193 ml 1615 ml Intake Oral 0 ml 0 ml IV Total 1182 ml 4540 ml Output Urine Total 625 ml 1075 ml Gastric Drainage Total 750 ml 1850 ml General: Alert, Oriented X3, Cooperative Neck: Supple Lungs: Normal Air Movement Abdomen: Benign, Soft, Non-tender, Non-distended, Other (NG with non-bilious, yellow colored enteric content. ) Extremities: Warm Neuro: Grossly Neurologically Intact Result Diagram: 03/27/17 0545 03/27/17 0545 Assessment & Plan Impression 67M with SBO, now symptomatically improving after 24 hours of NG decompression. Problems: Plan - Gastrograffin challenge today (100 cc of gastrograffin per ng tube, clamp x1 hr, then plain film at 8 and 24 hours) - Patient should remain NPO for time being - Limit narcotics please - Call general surgery if pain worsens - Rest of care per primary medicine team (thanks!) VTE Prophylaxis: Sub-Q Heparin (Unfractionated) Resuscitation Status: CPR: Attempt Resuscitation Oneil Regan MD Mar 27, 2017 11:52
[2017-03-27 14:17] VITALS: BP 160/78; PULSE 59; RESP 18; O2SAT 95
--- NOTE | 2017-03-27 17:35 | NUR ---
Social Work: Initial Assessment/Multi-Disciplinary Rounds D: EMR reviewed. Please see Initial Assessment linked to this note for more information. Pt is a 67 y/o male admitted for SBO per H&P. Pt has a readmit risk score of 2. SW met with pt and spouse at bedside to conduct initial assessment. Pt was alert and oriented x3. SW explained role and wrote phone number on white board. SW provided "Your Discharge Planning Checklist" and encouraged pt to contact SW for any discharge planning questions. Pt's insurance is Medicare and [email or web address] Pt does not have a PCP at this time. Pt stated he will follow-up with [facility] to coordinate new PCP. Pt gave verbal consent to contact spouse Mellissa Frey [phone] for discharge planning. DPOA/advanced directive ppw discussed - SW provided ppw and encouraged pt to provide the hospital with a copy once completed. Pt does not own or use any DME. Pt is independent with all ADLs. Pt has no hx of a SNF or HH. Pt discussed in multidisciplinary rounds. Per multidisciplinary rounds, pt is not medically stable for discharge, anticipate 1-2 more days. No SW needs identified, no MD orders received. A: SW assessed pt's capacity for self-care. SW does not have any concerns for pt's capacity for self-care. Pt is independent with ADLs at baseline. Pt does not have any concerns regarding discharge at this time. Pt lives at home with his spouse in [place]. P: Pt likely to discharge home with spouse to transport via POV. No SW needs identified. No MD orders received. SW will continue to follow for needs. ALCIRA Marcial Addendum: 03/27/17 at 1738 by NOLBERTO SPRINGER Amended: Links added.
--- NOTE | 2017-03-27 18:23 | NUR ---
NG/Tests/glucose Patient remains with NG to continuos low suction moderate amount dk green bile draining. Patient denies pain when asked. Patient had gastrograffin study today. Glucose levels today 115,127 then 90 this evening. Iv fluids were changed to D5 1/2 ns at 100 mls/hr.
[2017-03-27 19:34] VITALS: BP 156/75; PULSE 62; RESP 18; O2SAT 96
[2017-03-28] MEDS: Heparin 5,000 Unit/mL Inj SUBQ SCH ×3 (00:26→18:16)
--- NOTE | 2017-03-28 03:06 | PCM.PNMED ---
Subjective Date of Service march 27, 2017 Subjective Patient is in better spirits, not taking any pain meds. He seems to be less aggravated by the NG tube. Denies nausea, mcconnell had a bowel movement. Says he is sweating a lot Exam Vital Signs Vital Sign - Last Date Time Temp Pulse Resp B/P Pulse Ox O2 Delivery O2 Flow Rate FiO2 03/27/17 19:34 36.8 62 18 156/75 96 Room Air 03/26/17 20:31 2.00 Intake and Output 03/27/17 03/27/17 03/28/17 Cumulative From/Thru 15:00 23:00 07:00 03/25/17 22:45 - 03/27/17 19:06 Intake Total 150 ml 4690 ml Output Total 700 ml 3625 ml Balance -550 ml 1065 ml Intake Oral 150 ml 150 ml IV Total 4540 ml Output Urine Total 1075 ml Gastric Drainage Total 700 ml 2550 ml # Voids 3 3 # Bowel Movements 3 3 Exam General: Patient is an obese male tayo NAD HEENT: head normocephalic and atraumatic, EOMI, no scleral icterus Neck: neck supple, non-tender, no lymphadenopathy, trachea midline CV: regular rate and rhythm, s1 and s2 heard, no murmur, radial pulses 2+ and equal bilaterally, no rubs murmurs or gallops Lungs: Clear to auscultation bilaterally, no wheezes, rales or rhonchi, no increased work of breathing Abdomen: improved bowel sounds on 4Q, soft, tender to palpation around the umbilical region Skin: warm, dry Neuro: Grossly neurologically intact, normal speech, sensation intact Psych: Cooperative male IVs and Medications Medications Reviewed: Medications were reviewed in detail Lab and Diagnostics Result Diagram: 03/27/1745 03/27/1745 X-Rays, CTs and MRIs CT of abdomen IMPRESSION: Findings are consistent with a moderate-high grade mid to distal small bowel obstruction. Mild hazy mesentary edema may be due to superimposed ischemia. Zone transition in the lower abdomen. Probably less likely small bowel ischemia with pseudoobstruction No mesenteric or portal venous gas Scattered mild intra-abdominal and intrapelvic fluid. Cholcysectomy. No evidence of appendicitis Post op changes of the hips and lumbosacral spine. Study type: Abdominal CT IV contrast, Abdom CT oral contrast Interpretation / Wet Read by: Interpret - Radiologist ([facility]) 12-lead ECG Sinus Dax rate 42 Assessment & Plan Bhupinder Mullins is a 67 yr old male patient with past medical history significant for hypertension, DM type II, MELANIE, CAD, chronic back pain, anxiety, and obesity who presented to the ED with abdominal pain. He is being admitted for a small bowel obstruction. Small Bowel Obstruction, present on admission -CT of Abdomen revealed moderate-high grade mid to distal small bowel obstruction. It could be secondary to adhesions from prior cholecystectomy. -Per ER doctor, surgery was consulted and they will see him in the morning. Dr. rios has seen the patient, no current plans to take him to surgery. NG tube is placed -Keep patient nothing by mouth -Pt is still NPO, will switch fluids to D5 1/2 NS +20 meq 100 cc/hr -Control symptoms with morphine, and anti-nausea, discontinued IV tylenol. He is not needing it -NG tube is put in place yesterday by the surgery resident, he has >500 cc in it -Gastrograffin study per Gen surg is being done Hypernatremia, mild 03/27 -- Vq=069 -- Switched fluids to D5 1/2 + 20 meq K as above --Cont to monitor Lactic acidosis, present on admission, resolved -May signal bowel ischemia but trend shows that lactic acid has normalized -Lactic acid trend: 2.1, 1.3, 1.5 Leukocytosis, present on admission improving - WBC 15.3->12.8-->11.3 - Rule out other sources of infection- UA was negative, no evidence of appendicitis, - Trend WBC Acute Kidney Injury, present on admission improving -Likely secondary to dehydration, Cr 1.43-->1.39 -Patient is receiving IV fluids but also has NG tube now -Continue to monitor Hypertension chronic uncontrolled -Losartan 100 mg daily , may need to hold if renal fn does not improve -Hold Metoprolol tartrate due to low heart rate in the 40s -Ordered amlodipine 5 mg in the am, may have to go upto 10. - 6. Hx of Hyperlipidemia -Hold Atorvastatin 40 mg daily CODE STATUS: Full code DVT prophylaxis: Subcutaneous heparin Bowel regimen when necessary Patient status: Patient is admitted under inpatient status with expected length of stay greater than 2 midnights due to severity of presenting symptoms, risk of adverse event, and complexity of treatment. Pain Evaluation: Adequate Pain Control VTE Prophylaxis: Sub-Q Heparin (Unfractionated) VTE Mechanical Devices: Intermittant Pneumatic CD Resuscitation Status: CPR: Attempt Resuscitation Time spent 25 min Rosa Allen DO Mar 28, 2017 00:00
--- NOTE | 2017-03-28 04:14 | NUR ---
Bradycardia / NG tube Multiple times while sleeping pt drops briefly into low-mid 40s heart rate, heart rate generally in 50-60s per pulse oximetry. No complaints from pt who is alert and wakes easily. NG tube continues with high output. Hourly rounding ongoing.
[2017-03-28 04:45] VITALS: BP 180/80; PULSE 51; RESP 18; O2SAT 95
[2017-03-28] MEDS: Insulin LISPRO 300 Unit/3 mL Inj SUBQ SCH ×4 (07:49→22:00)
--- NOTE | 2017-03-28 08:20 | NUR ---
NG/Diet/Xray NG/Diet: Dr. Acuna present on unit and removed pt NG tube at 0743 and was instructed per MD and written orders to advance diet as tolerated. D/t being NPO for period of time, spoke with pt re: starting diet off slowly. Full liquid for Breakfast and advance to ADA if tolerated as pt denying nausea or abd pain s/p NG removal. Pt agreeable. Diet order placed. Pt off unit to Xray via w/c at 0810; IV infusing, no tele, pt made aware of plan for xray prior to pickup. Report given to Curtis Lomax, Xray prior to pickup. Await pt return. Addendum: 03/28/17 at 0826 by ULISES MÉNDEZ RN Pt returned to [facility] unit, 1031, from XRAY at 0825. Pt back to bed. IV remains infusing. Await breakfast. Addendum: 03/28/17 at 2332 by ULISES MÉNDEZ RN Pt advanced to ADA diet for dinner. Denies abd pain or nausea. Tolerating PO. Continuing to have loose stool, but at ~1800, stating decrease in loose stool. Pt hopeful for DC in AM if BP stable. Care continues. No acute issues this shift.
--- NOTE | 2017-03-28 08:25 | NUR ---
Spoke with Rubi in patient access at [facility] and this patient is non service connected but hold MCR A and B. Updated Insurance Verification and UR RN
[2017-03-28 09:24] VITALS: BP 157/87; PULSE 66
--- NOTE | 2017-03-28 10:31 | DRSVH ---
PROCEDURE: X-RAY ACUTE ABDOMINAL SERIES ([id number]) INDICATIONS: SBO s/p administration of gastrograffin TECHNIQUE: One view chest and two views of the abdomen were acquired. COMPARISON: [facility], CR, XR ABD AP 1VW, 03/26/2017, 9:23. [facility], CR, XR ABD ACUTE SERIES 3VW, 03/28/2017, 8:10. [facility], CR, XR CHEST 1VW (PORTABLE), 03/26, 6:51. FINDINGS: Surgical changes and devices: Multilevel lumbar spine fixation hardware present. Nasogastric tube in expected position. Bilateral hip arthroplasties. Chest: Lungs are clear. Heart size is normal. No pleural effusions. No pneumoperitoneum. Abdomen: Contrast media is noted throughout the course of the colon, otherwise there is mild gaseous distention of several small bowel loops. Nondifferential height air-fluid levels are present. Bones: No suspicious bony lesions. IMPRESSION: Contrast media noted throughout the course of the colon and mild persistent gaseous distention of sev eral small bowel loops suggestive of mild partial small bowel obstruction. Followup recommended. Bibasilar atelectasis versus aspiration or pneumonia. Correlate clinically. Dictated by: Dusty Michelle RRA Interpreted: Keshia Maloney MD on 03/28/2017 at 9:53 Approved by: Keshia Maloney MD, PhD on 03/28/2017 at 10:28
--- NOTE | 2017-03-28 11:16 | DRSVH ---
PROCEDURE: X-RAY ACUTE ABDOMINAL SERIES ([id number]) INDICATIONS: SBO s/p administration of gastrograffin TECHNIQUE: One view chest and two views of the abdomen were acquired. COMPARISON: [facility], CT, CT ABD PELVIS W CON, 03/26/2017, 0:04. [facility], CR, XR ABD ACUTE SERIES 3VW, 03/27/2017, 16:58. FINDINGS: Surgical changes and devices: Multilevel lumbar spine fixation hardware present. Nasogastric tube is been removed. Bilateral hip arthroplasties. Chest: Medial bibasilar airspace opacities redemonstrated. Heart size is normal. No pleural effusio ns. No pneumoperitoneum. Abdomen: Contrast media is again noted throughout the course of the colon, otherwise there is mild ga seous distention of several small bowel loops. Nondifferential height air-fluid levels are present. Bones: No suspicious bony lesions. IMPRESSION: 1. Persistent partial small bowel obstructive pattern not significantly changed. 2. Bibasilar atelectasis versus aspiration or pneumonia. Correlate clinically. Dictated by: Dusty Michelle RRA Interpreted: Keshia Maloney MD on 03/28/2017 at 11:11 Transcribed by: RACHAEL on 03/28/2017 at 11:15 Approved by: Keshia Maloney MD, PhD on 03/28/2017 at 11:35
[2017-03-28 12:02] VITALS: BP 181/83; PULSE 52
[2017-03-28] MEDS: Dextrose 5% 0.45% NaCl 1,000 ML IV SCH ×2 (13:35→22:54)
--- NOTE | 2017-03-28 13:56 | PCM.PNSURG ---
Subjective Date of Service: Mar 28, 2017 Visit Information: Reason for Visit SBO Surgery/Surgery Date Post-Op Day # Date of Admission: Mar 26, 2017 at 01:31 Hospital Day # Subjective: Patient's symptoms are improving. Postop General: No Complaints Gastrointestinal: No N/V Objective Objective NG output bilious Vital Sign- Last 8 Hours Date Time Temp Pulse Resp B/P Pulse Ox O2 Delivery O2 Flow Rate FiO2 03/28/17 12:02 52 181/83 03/28/17 09:24 66 157/87 03/28/17 09:22 Supplement Oxygen Intake and Output- Last 8 Hour 03/28/17 Cumulative From/Thru 07:00 03/25/17 22:45 - 03/28/17 06:25 Intake Total 1233 ml 5923 ml Output Total 1350 ml 4975 ml Balance -117 ml 948 ml Intake Oral 0 ml 150 ml IV Total 1233 ml 5773 ml Output Urine Total 450 ml 1525 ml Gastric Drainage Total 900 ml 3450 ml # Voids 3 # Bowel Movements 3 General: Alert, Oriented X3, Cooperative Neck: Full Range of Motion Lungs: Normal Air Movement Abdomen: Soft Result Diagram: 03/28/17 0552 03/28/17 0552 Assessment & Plan Impression 67 year old male with SBO, resolving -DC NG tube -Advance diet as tolerated Problems: VTE Prophylaxis: Sub-Q Heparin (Unfractionated) Resuscitation Status: CPR: Attempt Resuscitation Mario Colindres DO Mar 28, 2017 13:56
--- NOTE | 2017-03-28 14:58 | PCM.PNMED ---
Subjective Date of Service Mar 28, 2017 Subjective NGT removed this AM. Pt's BP elevated overnight. Exam Vital Signs Vital Sign - Last Date Time Temp Pulse Resp B/P Pulse Ox O2 Delivery O2 Flow Rate FiO2 03/28/17 12:02 52 181/83 03/28/17 09:22 Supplement Oxygen 03/28/17 04:45 37.0 18 95 03/26/17 20:31 2.00 Intake and Output 03/27/17 03/27/17 03/28/17 Cumulative From/Thru 15:00 23:00 07:00 03/25/17 22:45 - 03/28/17 06:25 Intake Total 150 ml 1233 ml 5923 ml Output Total 700 ml 1350 ml 4975 ml Balance -550 ml -117 ml 948 ml Intake Oral 150 ml 0 ml 150 ml IV Total 1233 ml 5773 ml Output Urine Total 450 ml 1525 ml Gastric Drainage Total 700 ml 900 ml 3450 ml # Voids 3 3 # Bowel Movements 3 3 Exam General: Patient is an obese male, NAD. HEENT: head normocephalic and atraumatic, EOMI, no scleral icterus Neck: neck supple, non-tender, no lymphadenopathy, trachea midline CV: regular rate and rhythm, s1 and s2 heard, no murmur, radial pulses 2+ and equal bilaterally, no rubs murmurs or gallops Lungs: Clear to auscultation bilaterally, no wheezes, rales or rhonchi, no increased work of breathing Abdomen: improved bowel sounds on 4Q, soft, tender to palpation around the umbilical region Skin: warm, dry Neuro: Grossly neurologically intact, normal speech, sensation intact Psych: Cooperative male IVs and Medications Medications Reviewed: Medications were reviewed in detail Lab and Diagnostics Result Diagram: 03/28/17 0552 03/28/17 0552 X-Rays, CTs and MRIs CT of abdomen IMPRESSION: Findings are consistent with a moderate-high grade mid to distal small bowel obstruction. Mild hazy mesentary edema may be due to superimposed ischemia. Zone transition in the lower abdomen. Probably less likely small bowel ischemia with pseudoobstruction No mesenteric or portal venous gas Scattered mild intra-abdominal and intrapelvic fluid. Cholcysectomy. No evidence of appendicitis Post op changes of the hips and lumbosacral spine. Study type: Abdominal CT IV contrast, Abdom CT oral contrast Interpretation / Wet Read by: Interpret - Radiologist ([facility]) 12-lead ECG Sinus Dax rate 42 Assessment & Plan Bhupinder Mullins is a 67 yr old male patient with past medical history significant for hypertension, DM type II, MELANIE, CAD, chronic back pain, anxiety, and obesity who presented to the ED with abdominal pain. He is being admitted for a small bowel obstruction. Small Bowel Obstruction, present on admission -CT of Abdomen revealed moderate-high grade mid to distal small bowel obstruction. It could be secondary to adhesions from prior cholecystectomy. -Surgeyr Consulted. Dr. Acuna has seen the patient, no current plans to take him to surgery. Rec place NGT. -Pt is still NPO, will switch fluids to D5 1/2 NS +20 meq 100 cc/hr -Control symptoms with morphine, and anti-nausea, -NG tube is put in place yesterday by the surgery resident, he has >500 cc in it. , NGT removed 03/28. Diet advanced. Hypertension chronic uncontrolled -Losartan 100 mg daily , may need to hold if renal fn does not improve -Try to give Metoprolol tartrate as HR tolerated, tends to get Dax to 40's. -Inc amlodipine to 10mg qd. Acute Kidney Injury, present on admission improving. Unclear if pt has hx of CKD , unclear baseline Scr. -Likely secondary to dehydration, Cr 1.43-->1.39 -C/W IVF. -Continue to monitor Hypernatremia, mild 03/27, stable. -- Lk=[id number] -- Rcvd IVF fluids to D5 1/2 + 20 meq K as above --Cont to monitor Lactic acidosis, present on admission, resolved -May signal bowel ischemia but trend shows that lactic acid has normalized -Lactic acid trend: 2.1, 1.3, 1.5 Leukocytosis, present on admission, resolved. - WBC 15.3->12.8-->11.3->9.6 - UA was negative, no evidence of appendicitis, Hx of Hyperlipidemia -c/w Atorvastatin 40 mg daily once tolerate PO. CODE STATUS: Full code DVT prophylaxis: Subcutaneous heparin Bowel regimen when necessary Patient status: Patient is admitted under inpatient status with expected length of stay greater than 2 midnights due to severity of presenting symptoms, risk of adverse event, and complexity of treatment. VTE Prophylaxis: Sub-Q Heparin (Unfractionated) VTE Mechanical Devices: Intermittant Pneumatic CD Resuscitation Status: CPR: Attempt Resuscitation Clive Rand MD Mar 28, 2017 14:58
[2017-03-28 15:05] VITALS: BP 167/83; PULSE 58; RESP 16; O2SAT 96
[2017-03-28 21:09] VITALS: BP 142/73; PULSE 59; RESP 20; O2SAT 94
[2017-03-29] MEDS: Heparin 5,000 Unit/mL Inj SUBQ SCH ×2 (01:35→08:34)
--- NOTE | 2017-03-29 04:18 | NUR ---
Nursing, NOC shift Assumed care of patient at 2400. Patient is a/o, able to make needs known. Denies pain/discomfort. CPOX in place to monitor pulse, continues w/ occassional bradycardia,lowest thru noc 49, consistently mid 50s. No loose stools reported. Denies hypo/hyperglycemia. VSS, call light w/in reach. CTM for changes.
[2017-03-29 05:46] VITALS: BP 182/77; PULSE 58; RESP 20; O2SAT 96
[2017-03-29 05:48] VITALS: BP 133/63
[2017-03-29] MEDS: Insulin LISPRO 300 Unit/3 mL Inj SUBQ SCH (08:00)
[2017-03-29] MEDS: Dextrose 5% 0.45% NaCl 1,000 ML IV SCH (09:35)
--- NOTE | 2017-03-29 09:38 | PCM.PNMED ---
Subjective Date of Service Mar 29, 2017 Subjective Pt says abd pain resolved. Can tolerate regular diet. Pt wants to go hm. Exam Vital Signs Vital Sign - Last Date Time Temp Pulse Resp B/P Pulse Ox O2 Delivery O2 Flow Rate FiO2 03/29/17 05:48 133/63 03/29/17 05:46 36.7 58 20 96 Room Air 03/26/17 20:31 2.00 Intake and Output 03/28/17 03/28/17 03/29/17 Cumulative From/Thru 15:00 23:00 07:00 03/25/17 22:45 - 03/29/17 06:47 Intake Total 712 ml 200 ml 6835 ml Output Total 300 ml 900 ml 400 ml 6575 ml Balance -300 ml -188 ml -200 ml 260 ml Intake Oral 712 ml 200 ml 1062 ml IV Total 5773 ml Output Urine Total 900 ml 400 ml 2825 ml Gastric Drainage Total 300 ml 3750 ml # Voids 3 # Bowel Movements 3 Exam General: Patient is an obese male, NAD. HEENT: head normocephalic and atraumatic, EOMI, no scleral icterus Neck: neck supple, non-tender, no lymphadenopathy, trachea midline CV: regular rate and rhythm, s1 and s2 heard, no murmur, radial pulses 2+ and equal bilaterally, no rubs murmurs or gallops Lungs: Clear to auscultation bilaterally, no wheezes, rales or rhonchi, no increased work of breathing Abdomen: improved bowel sounds on 4Q, soft, tender to palpation around the umbilical region- improved. Skin: warm, dry Neuro: Grossly neurologically intact, normal speech, sensation intact Psych: Cooperative male IVs and Medications Medications Reviewed: Medications were reviewed in detail Lab and Diagnostics Result Diagram: 03/28/17 0552 03/28/17 0552 X-Rays, CTs and MRIs CT of abdomen IMPRESSION: Findings are consistent with a moderate-high grade mid to distal small bowel obstruction. Mild hazy mesentary edema may be due to superimposed ischemia. Zone transition in the lower abdomen. Probably less likely small bowel ischemia with pseudoobstruction No mesenteric or portal venous gas Scattered mild intra-abdominal and intrapelvic fluid. Cholcysectomy. No evidence of appendicitis Post op changes of the hips and lumbosacral spine. Study type: Abdominal CT IV contrast, Abdom CT oral contrast Interpretation / Wet Read by: Interpret - Radiologist ([facility]) 12-lead ECG Sinus Dax rate 42 Assessment & Plan Bhupinder Mullins is a 67 yr old male patient with past medical history significant for hypertension, DM type II, MELANIE, CAD, chronic back pain, anxiety, and obesity who presented to the ED with abdominal pain. He is being admitted for a small bowel obstruction. Small Bowel Obstruction, present on admission -CT of Abdomen revealed moderate-high grade mid to distal small bowel obstruction. It could be secondary to adhesions from prior cholecystectomy. -Surgeyr Consulted. Dr. Acuna has seen the patient, no current plans to take him to surgery. Rec place NGT. -Pt is still NPO, will switch fluids to D5 1/2 NS +20 meq 100 cc/hr -Control symptoms with morphine, and anti-nausea, - NGT removed 03/28. Pt tolerating regular diet. - Surgery okay with discharge. - Follow up with PCP. if symptoms return can be referred to Surgery again as outpatient. Hypertension chronic, active. -Losartan 100 mg daily , may need to hold if renal fn does not improve - Held Metoprolol tartrate as HR tolerated, tends to get Dax to 40's. - Added Amlodipine to 10mg qd, will provide new prescription. Acute Kidney Injury, present on admission improving. Pt has hx of CKD is likely close to baseline. -Likely secondary to dehydration, Cr 1.43-->1.39 -C/W IVF. -Will need repeat renal function labs in 1 week to confirm back to baseline. Hypernatremia, mild 03/27, stable. -- Rcvd IVF fluids to D5 1/2 + 20 meq K as above --Cont to monitor Lactic acidosis, present on admission, resolved -May signal bowel ischemia but trend shows that lactic acid has normalized -Lactic acid trend: 2.1, 1.3, 1.5 Leukocytosis, present on admission, resolved. - WBC 15.3->12.8-->11.3->9.6 - UA was negative, no evidence of appendicitis, Hx of Hyperlipidemia -c/w Atorvastatin 40 mg daily once tolerate PO. CODE STATUS: Full code DVT prophylaxis: Subcutaneous heparin Bowel regimen when necessary Dispo- - Follow up with PCP. if symptoms return can be referred to Surgery again as outpatient by your PCP. - Added Amlodipine to 10mg qd, will provide new prescription. - Check Heart Rate before taking Metoprolol. If less than 60 beats per minute, do not take. - Will need repeat renal function labs in 1 week to confirm back to baseline. VTE Prophylaxis: Sub-Q Heparin (Unfractionated) VTE Mechanical Devices: Intermittant Pneumatic CD Resuscitation Status: CPR: Attempt Resuscitation Clive Rand MD Mar 29, 2017 09:38
--- NOTE | 2017-03-29 10:09 | PCM.DIMED ---
Discharge Instructions Date of Service Mar 29, 2017 Dates of Hospitalization Mar 26, 2017 at 01:31 Discharge Diagnosis Discharge Diagnosis Small Bowel Obstruction, present on admission, resolved. Hypertension chronic, active. Acute Kidney Injury on CKD, present on admission, active. Hypernatremia, mild, POA, Lactic acidosis, present on admission, resolved Leukocytosis, present on admission, resolved. Medication Instructions Additional med instructions - We have stopped Metoprolol. Can resume if your Heart Rate is above 80 which it has not been for last few days. Check Heart Rate before taking Metoprolol. If less than 60 beats per minute, do not take. - Added Amlodipine to 10mg daily for your blood pressure control, will provide new prescription. Diet Discharge Diet: Renal Diet Call your provider Call your provider for: Excessive diarrhea Patient Instructions Patient Instructions Follow-up plan - Follow up with PCP in 1 week, Dr. Trevino, if symptoms return can be referred to Surgery again as outpatient by your PCP - Will need repeat renal function labs in 1 week to confirm back to baseline. Clive Rand MD Mar 29, 2017 10:09
[2017-03-29] MEDS ORDERED: AMLO5TAB2 PO (10:14)
--- NOTE | 2017-03-29 10:18 | PCM.DC.MED ---
Discharge Summary Date of Service Mar 29, 2017 Dates of Hospitalization Date of Hospital Admission Mar 26, 2017 at 01:31 Date of Discharge: Mar 29, 2017 Providers: Admitting Physician: Trip Toledo MD Primary Care Physician: Idalia Attending Physician: Maya Arellano MD Diagnosis at Time of Discharge Diagnosis at Time of Discharge Small Bowel Obstruction, present on admission, resolved. Hypertension chronic, active. Acute Kidney Injury on CKD, present on admission, active. Hypernatremia, mild, POA, Lactic acidosis, present on admission, resolved Leukocytosis, present on admission, resolved. Procedures XRay, CTs & MRIs CT of abdomen IMPRESSION: Findings are consistent with a moderate-high grade mid to distal small bowel obstruction. Mild hazy mesentary edema may be due to superimposed ischemia. Zone transition in the lower abdomen. Probably less likely small bowel ischemia with pseudoobstruction No mesenteric or portal venous gas Scattered mild intra-abdominal and intrapelvic fluid. Cholcysectomy. No evidence of appendicitis Post op changes of the hips and lumbosacral spine. Study type: Abdominal CT IV contrast, Abdom CT oral contrast Interpretation / Wet Read by: Interpret - Radiologist ([facility]) ECG 12 Lead Sinus Dax rate 42 Brief History Per HPI on 03/26/[address] Ralph Roe Harpreet is a 67 yr old male patient with past medical history significant for hypertension, DM type II, MELANIE, CAD, chronic back pain, anxiety, and obesity who presented to the ED with abdominal pain. He states the waxing and waning pain started on 03/24/2017 and has gone progressively worse since then. He states that the pain is in the mid abdominal area around umbilicus and does not radiate anywhere else. It is worse after eating and with pressure. He has not tried anything at home to help relieve the pain. Reports that the pain feels as if "someone is sitting on his abdomen." He denies nausea and vomiting. He reports a normal bowel movement this afternoon and he has been able to pass gas. He denies constipation, diarrhea, and blood in the stools. Patient denies fevers, chills, headaches, chest pain, shortness of breath, and dysuria. In the ED, his vital signs were as follow: Temp 36.6, heart rate 43, respiratory rate 18, pressure 174/50, 100% O2 sat at room air. WBC was 15.[address] of the abdomen with findings that are consistent with a moderate to high grade mid to distal small bowel obstruction. He was given IV Dilaudid for pain relief. Hospital Course Bhupinder Mullins is a 67 yr old male patient with past medical history significant for hypertension, DM type II, MELANIE, CAD, chronic back pain, anxiety, and obesity who presented to the ED with abdominal pain. He is being admitted for a small bowel obstruction. Small Bowel Obstruction, present on admission -CT of Abdomen revealed moderate-high grade mid to distal small bowel obstruction. It could be secondary to adhesions from prior cholecystectomy. -Surgeyr Consulted. Dr. Acuna has seen the patient, no current plans to take him to surgery. Rec place NGT. -Pt is still NPO, will switch fluids to D5 1/2 NS +20 meq 100 cc/hr -Control symptoms with morphine, and anti-nausea, - NGT removed 03/28. Pt tolerating regular diet. - Surgery okay with discharge. - Follow up with PCP. if symptoms return can be referred to Surgery again as outpatient. Hypertension chronic, active. -Losartan 100 mg daily , may need to hold if renal fn does not improve - Held Metoprolol tartrate as HR tolerated, tends to get Dax to 40's. - Added Amlodipine to 10mg qd, will provide new prescription. Acute Kidney Injury, present on admission improving. Pt has hx of CKD is likely close to baseline. -Likely secondary to dehydration, Cr 1.43-->1.39 -C/W IVF. -Will need repeat renal function labs in 1 week to confirm back to baseline. Hypernatremia, mild 03/27, stable. -- Rcvd IVF fluids to D5 1/2 + 20 meq K as above --Cont to monitor Lactic acidosis, present on admission, resolved -May signal bowel ischemia but trend shows that lactic acid has normalized -Lactic acid trend: 2.1, 1.3, 1.5 Leukocytosis, present on admission, resolved. - WBC 15.3->12.8-->11.3->9.6 - UA was negative, no evidence of appendicitis, Hx of Hyperlipidemia -c/w Atorvastatin 40 mg daily once tolerate PO. CODE STATUS: Full code DVT prophylaxis: Subcutaneous heparin Bowel regimen when necessary Dispo- - Follow up with PCP. if symptoms return can be referred to Surgery again as outpatient by your PCP. - Added Amlodipine to 10mg qd, will provide new prescription. - Check Heart Rate before taking Metoprolol. If less than 60 beats per minute, do not take. - Will need repeat renal function labs in 1 week to confirm back to baseline. Exam Vital Signs (Last) Date Time Temp Pulse Resp B/P Pulse Ox O2 Delivery O2 Flow Rate FiO2 03/29/17 05:48 133/63 03/29/17 05:46 36.7 58 20 96 Room Air 03/26/17 20:31 2.00 Test 03/25/17 23:05 03/26/17 01:20 03/26/17 08:55 03/27/17 05:45 Neutrophils (%) (Auto) 83.2% (40-74) Lymphocytes (%) (Auto) 8.9% (14-46) Monocytes (%) (Auto) 6.7% (4-12) Eosinophils (%) (Auto) 0.7% (0-5) Basophils (%) (Auto) 0.1% (0-3) Prothrombin Time 10.4sec (8.1-12.5) Prothromb Time International Ratio 0.97ratio Hemoglobin A1c 7.1% (4.8-5.6) Magnesium Level 2.1mg/dL (1.6-2.6) Lipase 36U/L (13-60) Urine Color Yellow (YELLOW) Urine Appearance Clear (CLEAR,HAZY) Urine pH 5.0 (5.0-8.0) Urine Specific [place] 1.020 (1.003-1.035) Urine Protein Tracemg/dL (NEG,TRACE) Urine Glucose (UA) Negativemg/dL (NEGATIVE) Urine Ketones 40mg/dL (NEGATIVE) Urine Occult Blood Negative (NEGATIVE) Urine Nitrite Negative (NEGATIVE) Urine Bilirubin Negative (NEGATIVE) Urine Urobilinogen Normalmg/dL (NORMAL) Urine Leukocyte Esterase Negative (NEGATIVE) Urine RBC 0-2/hpf (0-2) Urine WBC 0-5/hpf (0-5) Urine Epithelial Cells Occasional/hpf (NONE-MOD) Urine Crystals None seen (NONE SEEN) Urine Bacteria Few/hpf (NONE-FEW) Urine Hyaline Casts None/lpf (NONE) Urine Granular Casts None seen (NONE SEEN) Urine Waxy Casts None seen (NONE SEEN) Urine Red Blood Cell Casts None seen (NONE SEEN) Urine White Blood Cell Casts None seen (NONE SEEN) Urine Mucus Present (None Seen) Urine Trichomonas None seen (NONE SEEN) Urine Yeast None (NONE SEEN) Urinalysis Comment None Urine Culture Reflexed Not indicated Lactic Acid Level 1.2mmol/L (0.4-2.0) Red Blood Count 4.42mil/mm3 (4.40-5.80) Hemoglobin 13.4g/dL (13.8-17.2) Hematocrit 41.7% (41.0-50.0) Mean Corpuscular Volume 94.3fL (81-100) Mean Corpuscular Hemoglobin 30.3pg (27.0-35.0) Mean Corpuscular Hemoglobin Concent 32.1% (32.0-37.0) Red Cell Distribution Width 15.2% (12.3-15.4) Platelet Count 167bil/L (150-400) Test 03/28/17 05:52 White Blood Count 9.6th/mm3 (3.8-10.1) Sodium Level 144mEq/L (134-144) Potassium Level 3.9mEq/L (3.5-5.2) Chloride Level 104mEq/L (97-108) Carbon Dioxide Level 28mmol/L (18-29) Blood Urea Nitrogen 21mg/dL (8-27) Creatinine 1.44mg/dL (0.76-1.27) Estimat Glomerular Filtration Rate 52mL/min (>59) Glucose Level 144mg/dL (60-99) Calcium Level 8.7mg/dL (8.5-10.1) Total Bilirubin 0.8mg/dL (0.0-1.2) Aspartate Amino Transf (AST/SGOT) 15U/L (0-50) Alanine Aminotransferase (ALT/SGPT) 11U/L (0-44) Alkaline Phosphatase 61U/L (25-160) Total Protein 5.8g/dL (6.4-8.4) Albumin 3.4g/dL (3.4-5.0) Discharge Medications Discharge Medications ([pioglitazone HCL]) 30 MG PO DAILY (Reported) Amlodipine (Amlodipine) 5 Mg Tablet 10 MG PO DAILY Prescribed by: MAYA ARELLANO MD Aspirin EC (Aspirin EC) 650 Mg Tablet. 325 MG PO DAILY (Reported) Atorvastatin Calcium (Atorvastatin Calcium) 40 Mg Tablet 40 MG PO DAILY ( Reported) Losartan Potassium (Losartan Potassium) 100 Mg Tablet 100 MG PO DAILY (Reported ) Metformin (Glucophage) 1,000 Mg Tablet 1,000 MG PO BID (Reported) As needed ([gabapentin]) 100 MG PO TID PRN PRN For Pain (Reported) Additional med instructions - We have stopped Metoprolol. Can resume if your Heart Rate is above 80 which it has not been for last few days. Check Heart Rate before taking Metoprolol. If less than 60 beats per minute, do not take. - Added Amlodipine to 10mg daily for your blood pressure control, will provide new prescription. Followup Plan Disposition: Home. Follow-up plan - Follow up with PCP in 1 week, Dr. Trevino, if symptoms return can be referred to Surgery again as outpatient by your PCP - Will need repeat renal function labs in 1 week to confirm back to baseline. Discharge Diet: Renal Diet Patient Instructions Maya Arellano MD Mar 29, 2017 10:18
--- NOTE | 2017-03-29 10:57 | NUR ---
Social Work- Discharge/ Multidisciplinary rounds. Data: EMR reviewed. Pt is on day 3 of hospitalization. Pt discussed in multidisciplinary rounds. Pt to discharge today, orders are active. SW met with pt at bedside regarding discharge plan, pt is agreeable to discharge. Pt denied any questions or concerns related to discharge. Pt to discharge today with spouse to transport via POV. No discharge needs. Assessment: Pt who is independent at baseline. Plan: Pt to discharge today with spouse to transport via POV. No discharge needs. ALCIRA Morgan Addendum: 03/29/17 at 1129 by PAULA FELIX New Rx faxed to [facility] for coverage. They will fill prescription at [facility]. Pt notified of this and address for [facility] provided. RN updated. ALCIRA Morgan
--- NOTE | 2017-03-29 12:28 | NUR ---
Discharge Orders for discharge were received. The patient was made aware of the plan to discharge and was agreeable to go. The patient was given information and teaching regarding his diagnosis and treatment, signs and symptoms to be aware of, follow up instructions, dietary information, scripts for new medications (faxed by social work) and teaching on the new medications. The patient signified understanding of this information, verified using the teach back method. The patient's asymptomatic IV was then DC'd intact and the patient was dressed in his own clothing. The patient then gathered his belongings and ambulated to the main entrance where he entered a private family vehicle. Patient denies any belongings in hospital safe or medications in hospital pharmacy. At the time of discharge the patient was alert and oriented, with no complaint of chest or abdominal pain, nausea or other difficultly. Patient reports last stool early this AM.
== END 2017-03-29 12:15 | disposition home or self-care (01) | DRG 389 ==
LOC: EDBD 22:43 → SED 22:43 → OSC 03-26 01:31
PROVIDERS: ADMIT Hospitalist; ATTEND Internal Medicine
PROC: 0D9670Z Drainage of Stomach with Drainage Device, Via Natural or Artificial Opening (ICD-10-PCS; principal; 2017-03-25)
DX: K56.60 Unspecified intestinal obstruction (principal); E87.2 Acidosis; N17.9 Acute kidney failure, unspecified; E87.0 Hyperosmolality and hypernatremia; Z79.82 Long term (current) use of aspirin; Z79.84 Long term (current) use of oral hypoglycemic drugs; Z95.5 Presence of coronary angioplasty implant and graft; D72.829 Elevated white blood cell count, unspecified; I10 Essential (primary) hypertension; E78.5 Hyperlipidemia, unspecified; E66.09 Other obesity due to excess calories; Z68.36 Body mass index [BMI] 36.0-36.9, adult